=== PATIENT | male | born 1985 | race Caucasian/White ===

== ENCOUNTER → 2017-03-02 | Outpatient (CLI) | payer OTHER ==
--- NOTE | 2017-03-02 16:17 | RAD ---
EXAM: Left lower extremity Doppler sonogram. HISTORY: Swelling. TECHNIQUE: Grayscale and color Doppler sonographic imaging of the lower extremity veins with spectral waveform analysis was performed. COMPARISON: None. FINDINGS: There is normal color flow, normal compressibility and there are normal spectral waveforms within the lower extremity veins. IMPRESSION: No Doppler evidence of lower extremity venous thrombosis.
== END | disposition home or self-care (01) ==
LOC: US 15:48
PROVIDERS: ATTEND Orthopaedic Surgery
DX: M79.605 Pain in left leg (principal); M79.89 Other specified soft tissue disorders
CPT/HCPCS: 93971